=== PATIENT | female | born 1990 | race Caucasian/White ===

== ENCOUNTER 2016-09-28 21:21 | Emergency (ER) | payer OTHER ==
[~2016-09-28] VITALS: Ht 167.6 cm; Wt 72.5 kg
[~2016-09-28 21:21] MED LIST: MEDROL DOSEPAK4 MG PO; MOTRIN800 MG PO; Motrin PO; NORCO 5/3251 TABLET PO; Percocet 5/325,Endoc PO; RANITIDINE HCL150 MG PO; TORADOL10 MG PO; ULTRAM50 MG PO; VICODIN,LORT1 TABLET PO; ZOFRAN4 MG PO
[2016-09-28] MEDS ORDERED: PRENATAL TABLE1 EAC3 PO (22:41)
[2016-09-28 23:00] LABS: MCH 31.7 PG (29.0-34.0); MCHC 34.4 G/DL (30.0-36.0); MCV 92.1 FL (83-99); MEAN PLAT.VOLUME 11.5 uM^3 (9.5-12.4); PLATELET COUNT 180 K/uL (156-360); RBC DIS.WIDTH-CV 12.9 % (11.8-14.6); RBC DIS.WIDTH-SD 41.9 % (39-53); RED BLOOD COUNT 3.69 M/uL (3.80-5.20); WHITE BLOOD COUNT 8.3 K/uL (4.1-10.2)
[2016-09-28 23:14] LABS: CHLORIDE 106 mEq/L (99-109); POTASSIUM 3.5 mEq/L (3.7-5.4); SODIUM 136 mEq/L (136-147)
[2016-09-28 23:16] LABS: GLUCOSE 88 mg/dL (70-99)
[2016-09-28 23:17] LABS: ANION GAP 9 MEQ/L (2-14)
[2016-09-28 23:18] LABS: TOTAL BILIRUBIN 0.1 mg/dL (0.0-1.0)
[2016-09-28 23:19] LABS: ALKALINE PHOSPHATASE 55 IU/L (3-129)
[2016-09-28 23:20] LABS: GFR ESTIMATE (CALCULATED) > 59 mL/min/
[2016-09-28 23:21] LABS: UREA NITROGEN (BUN) 13 mg/dL (9-23)
[2016-09-28 23:23] LABS: LIPASE 10 U/L (1.0-51.0)
[2016-09-28 23:28] LABS: ADD MIUA? NO; BILIRUBIN NEGATIVE; BLOOD NEGATIVE; COLOR YELLOW ((YELLOW)); GLUCOSE (STRIP) NEGATIVE; KETONES NEGATIVE; LEUKOCYTES NEGATIVE; NITRITE NEGATIVE; PROTEIN (STRIP) NEGATIVE; SPECIFIC GRAVITY 1.032 (1.000-1.030); UCUL ADDED? NO; UROBILINOGEN 0.2 MG/DL (0.2-1.0)
[2016-09-28 23:49] LABS: QUANTITATIVE HCG 19055.4 MIU/ML
[2016-09-29 01:18] VITALS: BP 91/58
== END 2016-09-29 01:21 | disposition home or self-care (01) ==
LOC: EME 21:21
DX: O00.01 Abdominal pregnancy with intrauterine pregnancy (principal); R10.2 Pelvic and perineal pain; Z3A.19 19 weeks gestation of pregnancy; J45.909 Unspecified asthma, uncomplicated; Z87.891 Personal history of nicotine dependence
CPT/HCPCS: 80053; 81003; 83690; 84702; 85027; 99281; 99284

== ENCOUNTER 2017-01-11 10:31 | Outpatient (CLI) | payer OTHER ==
[~2017-01-11 10:31] MED LIST changes: +PRENATAL TABLE1 EAC3 PO
[2017-01-11 10:47] VITALS: BP 111/68
[2017-01-11 12:05] LABS: AMPHETAMINES QUANT VALUE 0 NG/ML; BARBITUATES QUANT VALUE 0 NG/ML; BENZODIAZEPINES QUANT VALUE 0 NG/ML; BENZODIAZEPINES, URINE SCREEN Negative (200 ng/mL); MARIJUANA QUANT VALUE 0 NG/ML; OPIATES QUANTITATIVE VALUE 0 NG/ML; PHENCYCLIDINE QUANT VALUE 0 NG/ML
[2017-01-11 12:23] LABS: ALKALINE PHOSPHATASE 134 IU/L (3-129); ANION GAP 10 MEQ/L (2-14); CHLORIDE 104 MEQ/L (99-109); GFR ESTIMATE (CALCULATED) > 59 mL/min/; GLUCOSE 82 mg/dL (70-99); POTASSIUM 3.2 MEQ/L (3.7-5.4); SAMPLE HEMOLYSIS CHECK 0; SAMPLE ICTERIC CHECK 1; SAMPLE LIPEMIA CHECK 0; SODIUM 137 MEQ/L (136-147); UREA NITROGEN (BUN) 7 mg/dL (9-23)
[2017-01-12] MEDS ORDERED: ZANTAC150 MG PO (21:24)
[2017-01-12] MEDS ORDERED: LO-DOSE ASPIRIN81 M2 PO (21:24)
== END 2017-01-11 12:56 | disposition home or self-care (01) ==
LOC: LDRP-OP → 2WEST 10:32 → LDRP-OP 03-24 18:34
PROVIDERS: Advanced Practice Midwife
DX: O60.03 Preterm labor without delivery, third trimester (principal); Z3A.34 34 weeks gestation of pregnancy; R21 Rash and other nonspecific skin eruption; O98.413 Viral hepatitis complicating pregnancy, third trimester; B19.20 Unspecified viral hepatitis C without hepatic coma; O99.333 Smoking (tobacco) complicating pregnancy, third trimester; F17.210 Nicotine dependence, cigarettes, uncomplicated
CPT/HCPCS: 59025; 80053; 80306 90; 82239 90; G0378; Q0177

== ENCOUNTER 2017-01-12 20:54 | Outpatient (CLI) | payer OTHER ==
[2017-01-12 21:17] VITALS: BP 107/63
[2017-01-12] MEDS ORDERED: ZANTAC150 MG PO (21:24)
[2017-01-12] MEDS ORDERED: LO-DOSE ASPIRIN81 M2 PO (21:24)
[2017-01-12 21:59] LABS: EOSINOPHIL COUNT 0.1 K/uL (0-0.3); HEMATOCRIT 33.2 % (36.0-46.0); IMMATURE GRANULOCYTE (%) 2.5 % (0.0-0.7); IMMATURE GRANULOCYTE COUNT 0.2 K/uL; INSTRUMENT ABS NEUTROPHIL CT 6.5 K/uL; LYMPHOCYTE COUNT 1.7 K/uL (1.0-2.8); MCH 30.3 PG (29.0-34.0); MONOCYTE (%) 11.9 % (3-12); MONOCYTE COUNT 1.2 K/uL (0-0.8); NEUTROPHIL (%) 67.1 % (45-76); NEUTROPHIL COUNT 6.5 K/uL (1.8-6.4); PLATELET COUNT 213 K/uL (156-360); RBC DIS.WIDTH-CV 13.2 % (11.8-14.6); RED BLOOD COUNT 3.73 M/uL (3.80-5.20); WHITE BLOOD COUNT 9.6 K/uL (4.1-10.2)
[2017-01-12 22:07] LABS: UR CREATININE CONCENTRATION 63.7 MG/DL
[2017-01-12 22:08] LABS: AMPHETAMINES QUANT VALUE 0 NG/ML; BARBITUATES QUANT VALUE 0 NG/ML; BENZODIAZEPINES QUANT VALUE 0 NG/ML; BENZODIAZEPINES, URINE SCREEN Negative (200 ng/mL); MARIJUANA QUANT VALUE 0 NG/ML; OPIATES QUANTITATIVE VALUE 0 NG/ML; PHENCYCLIDINE QUANT VALUE 0 NG/ML
[2017-01-12 22:08] LABS: INTER. NORMALIZED RATIO 1.1; PROTHROMBIN TIME 10.7 (9.2-11.2)
[2017-01-12 22:09] LABS: CHLORIDE 106 mEq/L (99-109); POTASSIUM 3.1 mEq/L (3.7-5.4); SODIUM 138 mEq/L (136-147)
[2017-01-12 22:11] LABS: GLUCOSE 91 mg/dL (70-99)
[2017-01-12 22:13] LABS: TOTAL BILIRUBIN 4.6 mg/dL (0.0-1.0)
[2017-01-12 22:15] LABS: ALKALINE PHOSPHATASE 144 IU/L (3-129); GFR ESTIMATE (CALCULATED) > 59 mL/min/
[2017-01-12 22:16] LABS: UREA NITROGEN (BUN) 6 mg/dL (9-23)
[2017-01-12 22:46] LABS: ANION GAP 13 MEQ/L (2-14)
[2017-01-12 22:59] LABS: FIBRINOGEN 338 MG/DL (160-450)
[2017-01-12 23:32] LABS: LACTATE DEHYDROGENASE 347 IU/L (20-246)
[2017-01-12 23:56] VITALS: BP 114/61
[2017-01-13 01:24] LABS: ANTI-HIV (AIDS STAT TEST) NONREACTIVE; INTERNAL CONTROL VALID? YES
[2017-01-13 10:32] LABS: HBSG INDEX 0.25
[2017-01-13 10:34] LABS: ANTI-HEPATITIS A VIRUS (IGM) Nonreactive; ANTI-HEPATITIS B CORE (IGM) Nonreactive; HAV INDEX 0.16; HBC IgM INDEX 0.16
[2017-01-13 10:35] LABS: HIV INDEX 0.07; HIV-1/2 AB/AG COMBO Nonreactive
[2017-01-13 10:53] LABS: HPCA INDEX 13.49
== END 2017-01-13 02:07 | disposition short-term general hospital (02) ==
LOC: LDRP-OP 20:54 → 2WEST 20:57 → LDRP-OP 03-17 13:22
PROVIDERS: Advanced Practice Midwife; Obstetrics & Gynecology
DX: O98.413 Viral hepatitis complicating pregnancy, third trimester (principal); B19.20 Unspecified viral hepatitis C without hepatic coma; O60.03 Preterm labor without delivery, third trimester; Z3A.34 34 weeks gestation of pregnancy; R74.8 Abnormal levels of other serum enzymes; O99.713 Diseases of the skin and subcutaneous tissue complicating pregnancy, third trimester
CPT/HCPCS: 59025; 80053; 80074; 80306 90; 82570; 83615; 84156; 84550; 85025; 85384; 85610; 85730; 86703; 86900; 86901; G0378; J0702; J7120

== ENCOUNTER 2017-07-01 14:50 | Emergency (ER) | payer OTHER ==
[~2017-07-01] VITALS: Ht 167.6 cm; Wt 70.9 kg
[~2017-07-01 14:50] MED LIST changes: +LO-DOSE ASPIRIN81 M2 PO; +ZANTAC150 MG PO
[2017-07-01 17:03] LABS: EOSINOPHIL (%) 1.5 % (0-5); EOSINOPHIL COUNT 0.1 K/uL (0-0.3); HEMATOCRIT 40.9 % (36.0-46.0); IMMATURE GRANULOCYTE (%) 0.1 % (0.0-0.7); INSTRUMENT ABS NEUTROPHIL CT 4.4 K/uL; LYMPHOCYTE COUNT 1.8 K/uL (1.0-2.8); MCH 31.1 PG (29.0-34.0); MCV 91.5 FL (83-99); MEAN PLAT.VOLUME 10.6 uM^3 (9.5-12.4); MONOCYTE (%) 7.5 % (3-12); MONOCYTE COUNT 0.5 K/uL (0-0.8); NEUTROPHIL (%) 64.8 % (45-76); NEUTROPHIL COUNT 4.4 K/uL (1.8-6.4); PLATELET COUNT 202 K/uL (156-360); RBC DIS.WIDTH-CV 12.3 % (11.8-14.6); RBC DIS.WIDTH-SD 41.2 % (39-53); RED BLOOD COUNT 4.47 M/uL (3.80-5.20); WHITE BLOOD COUNT 6.8 K/uL (4.1-10.2)
[2017-07-01 17:15] LABS: CHLORIDE 105 mEq/L (99-109); POTASSIUM 3.7 mEq/L (3.7-5.4); SODIUM 140 mEq/L (136-147)
[2017-07-01 17:16] LABS: ADD MIUA? YES; BILIRUBIN NEGATIVE; BLOOD NEGATIVE; COLOR YELLOW ((YELLOW)); GLUCOSE (STRIP) NEGATIVE; KETONES NEGATIVE; LEUKOCYTES SMALL; NITRITE NEGATIVE; PROTEIN (STRIP) NEGATIVE; SPECIFIC GRAVITY 1.026 (1.000-1.030); UROBILINOGEN 0.2 MG/DL (0.2-1.0)
[2017-07-01 17:18] LABS: GLUCOSE 87 mg/dL (70-99)
[2017-07-01 17:19] LABS: ANION GAP 10 MEQ/L (2-14)
[2017-07-01 17:20] LABS: TOTAL BILIRUBIN 0.4 mg/dL (0.0-1.0)
[2017-07-01 17:21] LABS: ALKALINE PHOSPHATASE 81 IU/L (3-129); GFR ESTIMATE (CALCULATED) > 59 mL/min/
[2017-07-01 17:22] LABS: UREA NITROGEN (BUN) 14 mg/dL (9-23)
[2017-07-01 17:25] LABS: LIPASE 14 U/L (1.0-51.0)
[2017-07-01 17:31] LABS: QUANTITATIVE HCG < 4.0 MIU/ML
[2017-07-01 18:04] LABS: BACTERIA NONE SEEN /HPF; EPITHELIAL CELLS 2+ /HPF; MUCUS 2+ /LPF; RED BLOOD CELLS 0-5 /HPF (0-5)
[2017-07-01] MEDS ORDERED: KEFLEX500 MG PO (18:16)
[2017-07-01] MEDS ORDERED: PYRIDIUM200 MG PO (18:16)
[2017-07-01] MEDS ORDERED: MUCINEX D ER T1 EACH PO (18:16)
[2017-07-01] MEDS ORDERED: CLARITIN10 M3 PO (18:16)
[2017-07-01 18:28] VITALS: BP 112/60
== END 2017-07-01 18:30 | disposition home or self-care (01) ==
LOC: EME 14:50
PROVIDERS: Physician Assistant
DX: N30.90 Cystitis, unspecified without hematuria (principal); J30.9 Allergic rhinitis, unspecified; R05 Cough; J02.9 Acute pharyngitis, unspecified; Z79.82 Long term (current) use of aspirin; Z72.0 Tobacco use
CPT/HCPCS: 80053; 81003; 83605; 83690; 84702; 85025; 87086; 99281; 99285

== ENCOUNTER 2017-11-22 12:23 | Emergency (ER) | payer OTHER ==
[~2017-11-22] VITALS: Ht 167.6 cm; Wt 75.5 kg
[~2017-11-22 12:23] MED LIST changes: +CLARITIN10 M3 PO; +KEFLEX500 MG PO; +MUCINEX D ER T1 EACH PO; +PYRIDIUM200 MG PO
[2017-11-22 13:39] LABS: APPEARANCE SL.HAZY ((CLEAR)); BILIRUBIN NEGATIVE; BLOOD NEGATIVE; COLOR YELLOW ((YELLOW)); GLUCOSE (STRIP) NEGATIVE; KETONES NEGATIVE; LEUKOCYTES NEGATIVE; NITRITE NEGATIVE; PROTEIN (STRIP) 30; SPECIFIC GRAVITY 1.026 (1.000-1.030); UROBILINOGEN 0.2 MG/DL (0.2-1.0)
[2017-11-22 13:46] LABS: BACTERIA RARE /HPF; EPITHELIAL CELLS 1+ /HPF; MUCUS TRACE /LPF; RED BLOOD CELLS 0-5 /HPF (0-5); WHITE BLOOD CELLS 0-5 /HPF (0-5)
[2017-11-22] MEDS ORDERED: TESSALON PERLE100 MG PO (13:55)
[2017-11-22] MEDS ORDERED: VENTOLIN HFA18 GM IH (13:55)
[2017-11-22 14:20] VITALS: BP 107/79
== END 2017-11-22 14:20 | disposition home or self-care (01) ==
LOC: EME 12:23
PROVIDERS: Nurse Practitioner Family
DX: J06.9 Acute upper respiratory infection, unspecified (principal); R10.30 Lower abdominal pain, unspecified
CPT/HCPCS: 71046; 81003; 87651 90; 99281; 99283